=== PATIENT | male | born 1940 | race Caucasian/White ===

== ENCOUNTER 2018-02-21 10:06 | Outpatient (CLI) | payer MEDICARE ==
--- NOTE | 2018-02-21 13:09 | RAD ---
LUMBAR SPINE 3 VIEWS: Date: 02/21/18 HISTORY: 77-year-old male with history of low back pain and lumbar radiculopathy, radiation down left hip for 3 months. FINDINGS: Multilevel disc osteophytosis with marked narrowing at L4-L5. Very mild retrolisthesis of L4 on L5 an d mild but stable anterolisthesis of L3 on L4. Generalized disc osteophytosis and facet arthrosis. No acute compression fracture. IMPRESSION: Lumbar spondylosis with narrowing at L4-L5 with mild anterolisthesis of L3 on L4 and mild retrolisthe sis of L4 on L5, without abnormal translation between flexion and extension. POS: C
--- NOTE | 2018-02-21 14:00 | MRI ---
[facility] LUMBAR SPINE NONCONTRAST: HISTORY: Low back pain with left leg radiculopathy. FINDINGS: Conus medullaris has a normal appearance. Vertebral body heights are maintained. There is desiccati on of the 3 middle intervertebral disks with scattered mild discogenic end plate changes. 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 T12-L1, L1-2: Mild osteophytosis. The central canal and neural foramen are patent. L2-3: Desiccation of the disk. Minimal disk bulge. Thecal sac is patent. Degenerative changes res ult in mild to moderate stenosis of the right neural foramen at this level. L3-4: Mild disk space narrowing. Minimal degenerative spondylolisthesis. Posterior disk bulge, tabatha ng with facet joint hypertrophy and ligamentous thickening, result in severe stenosis of the central canal and moderate stenosis of each neural foramen. Disk space narrowing. Minimal degenerative retrolisthesis. Annular fissure within the posterior asp ect of the disk. Mild posterior disk protrusion with minimal inferior extension compresses the ventr al and left ventral aspect of the thecal sac and the origin of the left L5 nerve root. Severe stenos is of the thecal sac. Degenerative changes with moderate stenosis of each neural foramen. L5-S1: Mild disk bulge. Circumferential degenerative changes with mild stenosis of the central irina l. Prominent osteophytosis and degenerative changes result in severe stenosis of each neural foramen . IMPRESSION: Posterior disk protrusion at the L4-5 level compressing the thecal sac and left L5 nerve root origin. Prominent multilevel degenerative changes also result in severe stenoses at the L3-4 and L4-5 level s and severe bilateral foraminal stenosis at the lumbosacral junction. POS: SEVERO
== END 2018-02-21 10:07 | disposition home or self-care (01) ==
LOC: TBSIIMAG 10:06
PROVIDERS: ATTEND Surgery
DX: M47.26 Other spondylosis with radiculopathy, lumbar region (principal); M48.061 Spinal stenosis, lumbar region without neurogenic claudication; M43.16 Spondylolisthesis, lumbar region; M51.16 Intervertebral disc disorders with radiculopathy, lumbar region; M99.84 Other biomechanical lesions of sacral region; M99.83 Other biomechanical lesions of lumbar region
CPT/HCPCS: 72100; 72148

== ENCOUNTER 2020-06-16 07:45 | Outpatient (CLI) | payer MEDICARE ==
[2020-06-16 16:34] LABS: Anion Gap 13 mmol/L (10-20); BUN (Urea Nitrogen) 12 mg/dL (8.4-25.7); Calc. Creatinine Clearance 0 mL/min (70-130); Calcium 8.9 mg/dL (7.8-10.44); Carbon Dioxide 26 mmol/L (23-31); Chloride 104 mmol/L (98-107); Glucose 93 mg/dL (83-110); Hemoglobin 16.4 g/dL (14.0-18.0); Mean Corpuscular HGB CONC 34.1 G/DL (32.0-36.0); Mean Corpuscular Hemoglobin 32.2 PG (27.0-33.0); Mean Corpuscular Volume 94.5 fl (80.0-100.0); Mean Platelet Volume 8.6 fl (7.4-10.4); Platelet Count 296 10x3/uL (130-400); Potassium 4.5 mmol/L (3.5-5.1); RBC Distribution Width 12.1 % (11.5-14.5); Red Blood Cell (RBC) Count 5.09 10x6/uL (4.40-5.80); Sodium 138 mmol/L (136-145); White Blood Cell (WBC) Count 7.3 10x3/uL (4.5-11.0)
[2020-06-16 16:48] LABS: PTT 28.5 sec (22.0-33.0); Prothrombin Time 10.6 sec (9.5-12.1)
[2020-06-17 01:58] LABS: SARS-CoV-2 PCR by NAA Not Detected (NotDetected)
--- NOTE | 2020-06-17 12:39 | EKG ---
Test Reason : Blood Pressure : / mmHG Vent. Rate : 063 BPM Atrial Rate : 063 BPM P-R Int : 200 ms QRS Dur : 102 ms QT Int : 418 ms P-R-T Axes : 048 -53 030 degrees QTc Int : 427 ms Normal sinus rhythm Left anterior fascicular block Cannot rule out Anterior infarct , age undetermined Abnormal ECG No previous ECGs available Confirmed by MUMTAZ PUGA ([id number]) on 06/17/2020 12:39:38 PM Referred By: ANGELI Confirmed By:MUMTAZ PUGA
== END 2020-06-16 07:46 | disposition home or self-care (01) ==
LOC: EDSTATUS 07:45 → LABBT 07:45
PROVIDERS: ATTEND Surgery
DX: Z01.818 Encounter for other preprocedural examination (principal); Z20.822 Contact with and (suspected) exposure to COVID-19; M54.16 Radiculopathy, lumbar region; M48.062 Spinal stenosis, lumbar region with neurogenic claudication; M71.38 Other bursal cyst, other site
CPT/HCPCS: 80048; 85027; 85610; 85730; 93005; U0003; U0005; 87635; 93010

== ENCOUNTER 2020-06-21 07:58 | Day surgery (SDC) | payer MEDICARE ==
[2020-06-17 15:06] VITALS: BMI 31.0
[2020-06-21] MEDS ORDERED: PHENYLEPHRINE-NS 100 MCG/ML 10 ML SYRINGE ONE ×2 (09:14→11:37)
[2020-06-21] MEDS ORDERED: ePHEDrine 50 MG/ML VIAL ONE (09:14)
[2020-06-21] MEDS ORDERED: Lidocaine 1% PF 5 ML VIAL ONE (09:14)
[2020-06-21] MEDS ORDERED: Rocuronium Bromide 10 MG/ML (10ML VIAL) ONE (09:14)
[2020-06-21] MEDS ORDERED: Dexamethasone 20 MG/5 ML VIAL ONE (09:14)
[2020-06-21] MEDS ORDERED: PROPOFOL 200 MG/20 ML VIAL ONE (09:14)
[2020-06-21] MEDS ORDERED: Ondansetron PF 4 MG/2 ML Vial ONE (09:14)
[2020-06-21] MEDS ORDERED: Ketorolac Tromethamine 30 MG/ML VIAL ONE (09:14)
[2020-06-21] MEDS ORDERED: Fentanyl 100 MCG/2 ML VIAL ONE ×4 (09:50→13:13)
[2020-06-21] MEDS ORDERED: Thrombin 5000 UNITS/5 ML VIAL ONE (11:57)
[2020-06-21] MEDS ORDERED: Promethazine HCl 25 MG/ML VIAL IM PRN (12:26)
[2020-06-21] MEDS ORDERED: Ondansetron HCl/PF 4 MG/2 ML Vial IVP PRN (12:26)
[2020-06-21] MEDS ORDERED: HYDROmorphone 2 MG/ML VIAL SLOW IVP PRN (12:26)
[2020-06-21] MEDS ORDERED: Morphine Sulfate 2 MG/ML SYRINGE SLOW IVP PRN (12:26)
[2020-06-21] MEDS ORDERED: PACU-Morphine 4MG/ML VIAL SLOW IVP PRN (12:26)
[2020-06-21] MEDS ORDERED: Promethazine HCl 25 MG/ML VIAL SLOW IVP PRN (12:26)
[2020-06-21] MEDS ORDERED: SUGAMMADEX SODIUM 200 MG/2 ML VIAL ONE (12:28)
[2020-06-21] MEDS ORDERED: Acetaminophen/Codeine 30-300mg Tablet PO PRN (12:53)
[2020-06-21] MEDS ORDERED: Ondansetron PF 4 MG/2 ML Vial IVP PRN (12:53)
[2020-06-21] MEDS ORDERED: traMADol HCl 50 MG TAB PO PRN (12:53)
[2020-06-21] MEDS ORDERED: tiZANidine HCl 4 MG TAB PO PRN (12:53)
[2020-06-21] MEDS ORDERED: HYDROcodone/Acetaminophen 7.5/325 mg Tablet PO PRN (12:53)
[2020-06-21] MEDS ORDERED: Acetaminophen 325 MG TAB PO PRN (12:53)
[2020-06-21] MEDS ORDERED: Morphine 2 MG/ML VIAL SLOW IVP PRN (12:53)
[2020-06-21] MEDS ORDERED: Sodium Chloride 0.9% 1,000 ML IV SCH (13:00)
--- NOTE | 2020-06-21 13:14 | OP ---
DATE OF PROCEDURE: 06/21/2020 LOCATION: OR 12. WORM PACKER: Maria D Garcia PA-C PREPROCEDURE DIAGNOSES: Low back and leg pain with multilevel lumbar stenosis and synovial cyst. POSTPROCEDURE DIAGNOSES: Low back and leg pain with multilevel lumbar stenosis and synovial cyst. PROCEDURES PERFORMED: 1. L3-L4, L4-L5 laminectomies, partial facetectomies, foraminotomies over the L3, L4, L5 nerve roots. 2. Right L5-S1 synovial cyst resection for decompression of the traversing right S1 nerve root. 3. Left L5-S1 hemilaminotomy, foraminotomy for decompression of the left S1 nerve root (modifier 59 should be added as this is a different procedure performed on the opposite side of the synovial cyst for decompression of the contralateral nerve root). DESCRIPTION OF PROCEDURE: After informed consent was obtained from the patient, the patient was brought to the OR. Proper patient, pause, and identification were carried out. He was placed under excellent endotracheal anesthesia and positioned prone on the OR table. All appropriate points were padded. We identified the L3, L4, L5, and S1 dorsal spines and lamina. A linear saulo was made over this region. This area was sterilely cleansed, prepared and draped. Proper patient, pause, and identification were carried out. The wound was then opened with a combination of sharp, monopolar, and blunt dissection. The L3, L4, L5, and S1 dorsal spines and lamina were exposed. Localization film confirmed our area of interest. We then performed a L3-L4, L4-L5 laminectomies, partial facetectomies, foraminotomies, and then proceeded to expose the right L5-S1 synovial cyst and tease this gently off the dura for complete decompression of traversing right S1 nerve root. We then decompressed the contralateral left S1 nerve root via left L5-S1 hemilaminotomy, foraminotomy, had excellent decompression of common dural tube and nerve roots. Copious irrigation occurred throughout as did maximizing hemostasis. The wound was then closed in anatomic layers following sprinkling of vancomycin powder. The patient was emerged from anesthesia. Job ID: [id number]
[2020-06-21] MEDS ORDERED: CEFAZOLIN 2 GM in Premix Bag 1 BAG IVPB SCH (17:00)
== END 2020-06-21 16:15 | disposition home or self-care (01) ==
LOC: SDC 07:58
PROVIDERS: ATTEND Surgery
PROC: 01NB0ZZ Release Lumbar Nerve, Open Approach (ICD-10-PCS; principal; 2020-06-21)
PROC: 00NY0ZZ Release Lumbar Spinal Cord, Open Approach (ICD-10-PCS; 2020-06-21)
DX: M54.16 Radiculopathy, lumbar region (principal); M48.062 Spinal stenosis, lumbar region with neurogenic claudication; M71.38 Other bursal cyst, other site; M54.40 Lumbago with sciatica, unspecified side; Z96.652 Presence of left artificial knee joint
CPT/HCPCS: 76000; J0690; J1100; J1885; J2405; J2704; J3010; J3370; J3490

== ENCOUNTER 2020-08-06 12:48 | Inpatient (IN) | payer MEDICARE ==
[2020-08-06 14:34] LABS: #Eosinphils 0.4 thou/uL (0.0-0.7); #Lymphocytes 1.3 thou/uL (1.20-3.40); #Monocytes 1.5 thou/uL (0.11-0.59); #Neutrophils 8.3 thou/uL (1.40-6.50); %Basophils 0.3 % (0.0-1.0); %Eosinophils 3.7 % (0.0-10.0); %Lymphocytes 11.4 % (21.0-51.0); %Monocytes 12.9 % (0.0-10.0); %Neutrophils 71.8 % (42.0-75.0); Hemoglobin 15.6 g/dL (14.0-18.0); Mean Corpuscular HGB CONC 34.1 g/dL (32.0-36.0); Mean Corpuscular Hemoglobin 33.4 pg (27.0-31.0); Mean Platelet Volume 6.6 fL (7.4-10.4); Platelet Count 336 thou/uL (130-400); RBC Distribution Width 11.4 % (11.5-14.5); Red Blood Cell (RBC) Count 4.67 mill/uL (4.70-6.10); White Blood Cell (WBC) Count 11.5 thou/uL (4.8-10.8)
[2020-08-06 14:56] LABS: ALT (SGPT) 23 U/L (8-55); AST (SGOT) 27 U/L (5-34); Albumin 3.7 g/dL (3.4-4.8); Alkaline Phosphatase 60 U/L (40-110); Anion Gap 15 mmol/L (10-20); BUN (Urea Nitrogen) 14 mg/dL (8.4-25.7); Bilirubin, Total 0.9 mg/dL (0.2-1.2); Calc. Creatinine Clearance 0 mL/min (70-130); Calcium 8.6 mg/dL (7.8-10.44); Carbon Dioxide 24 mmol/L (23-31); Chloride 101 mmol/L (98-107); Glucose 93 mg/dL (83-110); Potassium 4.1 mmol/L (3.5-5.1); Protein, Total 6.7 g/dL (5.8-8.1); Sodium 136 mmol/L (136-145)
[2020-08-06] MEDS ORDERED: traMADol HCl 50 MG TAB PO PRN (15:18)
[2020-08-06] MEDS ORDERED: Acetaminophen 325 MG TAB PO PRN (15:18)
[2020-08-06] MEDS ORDERED: tiZANidine HCl 4 MG TAB PO PRN (15:18)
[2020-08-06] MEDS ORDERED: HYDROcodone/Acetaminophen 7.5/325 mg Tablet PO PRN (15:18)
[2020-08-06 16:54] VITALS: BMI 31.0
[2020-08-06] MEDS ORDERED: Vancomycin HCl 1.5 GM in Sodium Chloride 0.9% 500 ML IVPB SCH (17:00)
[2020-08-06] MEDS: Sodium Chloride 0.9% 1,000 ML IV SCH (17:18)
[2020-08-06] MEDS: Cefepime 2 GM in Sodium Chloride 0.9% 100 ML IVPB SCH (17:41)
[2020-08-06] MEDS: Vancomycin 1.5 GRAM/300 ML BAG 1.5 GM in Premix Bag 1 BAG IVPB SCH (17:41)
[2020-08-06] MEDS: metroNIDAZOLE 250 MG in Admixture Fee 2 EACH IVPB SCH (20:59)
[2020-08-07 01:41] LABS: SARS-CoV-2 PCR by NAA Not Detected (NotDetected)
[2020-08-07] MEDS: Vancomycin 1.5 GRAM/300 ML BAG 1.5 GM in Premix Bag 1 BAG IVPB SCH ×2 (05:35→16:04)
[2020-08-07] MEDS: metroNIDAZOLE 250 MG in Admixture Fee 2 EACH IVPB SCH ×3 (05:35→20:57)
[2020-08-07] MEDS: Cefepime 2 GM in Sodium Chloride 0.9% 100 ML IVPB SCH ×2 (05:35→17:49)
[2020-08-07] MEDS ORDERED: Fentanyl 100 MCG/2 ML VIAL ONE ×3 (10:29→12:06)
[2020-08-07] MEDS ORDERED: Phenylephrine 10 MG/ML VIAL ONE (10:30)
[2020-08-07] MEDS ORDERED: Ondansetron PF 4 MG/2 ML Vial ONE (10:45)
[2020-08-07] MEDS ORDERED: Glycopyrrolate 0.2 MG/ML 5 ML SYRINGE ONE (10:45)
[2020-08-07] MEDS ORDERED: Lidocaine 1% PF 5 ML VIAL ONE (10:45)
[2020-08-07] MEDS ORDERED: PHENYLEPHRINE-NS 100 MCG/ML 10 ML SYRINGE ONE (10:45)
[2020-08-07] MEDS ORDERED: Rocuronium Bromide 10 MG/ML (10ML VIAL) ONE (10:45)
[2020-08-07] MEDS ORDERED: PROPOFOL 200 MG/20 ML VIAL ONE (10:45)
[2020-08-07] MEDS ORDERED: Sodium Chloride 0.9% 10 ML ONE (11:11)
[2020-08-07] MEDS ORDERED: Bacitracin Zinc Ointment 30 gm TUBE ONE (11:11)
[2020-08-07] MEDS ORDERED: PACU-Morphine 4MG/ML VIAL SLOW IVP PRN (11:50)
[2020-08-07] MEDS ORDERED: Promethazine HCl 25 MG/ML VIAL SLOW IVP PRN (11:50)
[2020-08-07] MEDS ORDERED: Ondansetron HCl/PF 4 MG/2 ML Vial IVP PRN (11:50)
[2020-08-07] MEDS ORDERED: Promethazine HCl 25 MG/ML VIAL IM PRN (11:50)
[2020-08-07] MEDS ORDERED: HYDROmorphone 2 MG/ML VIAL SLOW IVP PRN (11:50)
[2020-08-07] MEDS ORDERED: Morphine 2 MG/ML VIAL SLOW IVP PRN (12:01)
[2020-08-07] MEDS ORDERED: Morphine 4 MG/ML VIAL ONE (12:10)
[2020-08-07] MEDS: Sodium Chloride 0.9% 1,000 ML IV SCH (13:04)
[2020-08-07] MEDS: Gabapentin 300 MG CAP PO SCH (20:57)
[2020-08-07] MEDS: Acetaminophen/Codeine 30-300mg Tablet PO PRN (20:59)
[2020-08-07] MEDS ORDERED: Sodium Chloride 0.9% 500 ML IVPB SCH (23:45)
[2020-08-08] MEDS: Acetaminophen/Codeine 30-300mg Tablet PO PRN ×2 (01:10→05:11)
[2020-08-08] MEDS: metroNIDAZOLE 250 MG in Admixture Fee 2 EACH IVPB SCH (03:50)
[2020-08-08] MEDS: Vancomycin 1.5 GRAM/300 ML BAG 1.5 GM in Premix Bag 1 BAG IVPB SCH (05:11)
[2020-08-08] MEDS: Gabapentin 300 MG CAP PO SCH (05:11)
[2020-08-08] MEDS: Cefepime 2 GM in Sodium Chloride 0.9% 100 ML IVPB SCH (05:12)
[2020-08-08 10:07] VITALS: BP 118/75; TEMP 98.3
== END 2020-08-08 10:05 | disposition home or self-care (01) | DRG 858 ==
LOC: ERS 12:48 → SURG A 15:18
PROVIDERS: ADMIT Surgery; ATTEND Surgery
PROC: 0J970ZZ Drainage of Back Subcutaneous Tissue and Fascia, Open Approach (ICD-10-PCS; principal; 2020-08-06)
DX: T81.41XA Infection following a procedure, superficial incisional surgical site, initial encounter (principal); Y83.8 Other surgical procedures as the cause of abnormal reaction of the patient, or of later complication, without mention of misadventure at the time of the procedure; Z20.822 Contact with and (suspected) exposure to COVID-19; E78.5 Hyperlipidemia, unspecified; E11.9 Type 2 diabetes mellitus without complications; M06.9 Rheumatoid arthritis, unspecified; Z96.652 Presence of left artificial knee joint; B95.7 Other staphylococcus as the cause of diseases classified elsewhere
CPT/HCPCS: 36415; 80053; 85025; 85652; 86140; 87040; 87070; 87077; 87186; 87205; 87635; 99284; J0692; J2270; J2370; J2405; J2704; J3010; J3370; J3490; J7030; U0003; U0005

== ENCOUNTER 2021-03-20 12:55 | Outpatient (CLI) | payer MEDICARE | END 2021-03-20 12:56 | disposition home or self-care (01) | LOC: BICRAD 12:55 | PROVIDERS: ATTEND Thoracic Surgery (Cardiothoracic Vascular Surgery) | DX: J94.2 Hemothorax (principal); J90 Pleural effusion, not elsewhere classified; R91.8 Other nonspecific abnormal finding of lung field | CPT/HCPCS: 71046 ==